=== PATIENT | female | born 1995 | race Caucasian/White ===

== ENCOUNTER 2019-08-26 12:09 | Observation (INO) ==
[2019-08-26 13:55] LABS: Basophils % 0.4 % (0.0-0.8); Eosinophils % 0.4 % (0.00-10.9); Hematocrit 42.4 VOL% (35.7-47.0); Hemoglobin 14.4 GM/DL (12.0-16.0); Immature Granulocytes % 0.4 %; Immature Granulocytes Absolute 0.01 #; Lymphocytes # 0.5 10*3/uL (1.4-4.0); Lymphocytes % 18.1 % (21.3-54.2); Mean Corpuscular Volume 94.9 FL (87-102); Mean Platelet Volume 12.2 FL (9.6-12.0); Monocytes % 10.1 % (1.7-12.7); Neutrophils % 70.6 % (38.7-73.9); Platelet Count 108 T/CUMM (130-400); Red Blood Count 4.47 MC/CUMM (3.8-5.5); Red Cell Distribution Width 11.9 % (9.3-17.3); White Blood Count 2.8 T/CUMM (4-12)
[2019-08-26 14:10] LABS: Barbiturates Screen,Urine Negative (Negative); Benzodiazepines Screen,Urine Positive (Negative); Cannabinoid Screen,Urine Negative (Negative); Opiate Screen,Urine Negative (Negative); Phencyclidine Screen,Urine Negative (Negative)
[2019-08-26 14:13] LABS: Alanine Aminotransferase 28 U/L (13-56); Albumin 3.8 G/DL (3.4-5.0); Alkaline Phosphatase 117 U/L (45-117); Aspartate Amino Transferase 27 U/L (0-37); Blood Urea Nitrogen 10 MG/DL (7-18); Calcium 8.5 MG/DL (8.5-10.1); Estimated Glom Filtration Rate 116 ML/MIN; Glucose 72 MG/DL (74-106); Osmolality,Calculated 276.4 MOS/KG (273-304); Total Protein 7.2 G/DL (6.4-8.3)
[2019-08-26] MEDS ORDERED: POTASSIUM CHLORIDE 20 MEQ TABLET PO STA (14:18)
[2019-08-26] MEDS ORDERED: SODIUM CHLORIDE 0.9% 1,000 ML IV STA (15:11)
[2019-08-26] MEDS ORDERED: ACETAMINOPHEN 325 MG TABLET PO PRN (17:00)
[2019-08-26] MEDS ORDERED: ONDANSETRON 4 MG/2 ML VIAL IV PRN (17:00)
[2019-08-26] MEDS ORDERED: traZODone 50 MG TABLET PO PRN (17:29)
[2019-08-26] MEDS ORDERED: ENOXAPARIN 30 MG/0.3 ML SYRINGE SUBCUT SCH (21:00)
[2019-08-26] MEDS: NICOTINE 14 MG/24 HR PATCH TRANSDERM SCH (21:03)
[2019-08-26] MEDS: POTASSIUM CHLORIDE 20 MEQ TABLET PO SCH (21:03)
[2019-08-26] MEDS: clonazePAM 0.5 MG TABLET PO SCH (21:03)
[2019-08-26] MEDS ORDERED: traZODone 50 MG TABLET PO ONE (21:09)
[2019-08-27 05:13] LABS: Calcium 8.1 MG/DL (8.5-10.1); Osmolality,Calculated 279.4 MOS/KG (273-304)
[2019-08-27] MEDS ORDERED: SERTRALINE 100 MG TABLET PO SCH (09:00)
[2019-08-27] MEDS ORDERED: ARIPiprazole 2 MG TABLET PO SCH (09:00)
[2019-08-27] MEDS ORDERED: ASPIRIN EC 81 MG TABLET PO SCH (09:00)
[2019-08-27] MEDS: clonazePAM 0.5 MG TABLET PO SCH (09:35)
[2019-08-27] MEDS: NICOTINE 14 MG/24 HR PATCH TRANSDERM SCH (09:36)
[2019-08-27] MEDS: POTASSIUM CHLORIDE 20 MEQ TABLET PO SCH (09:36)
[2019-08-27 12:28] VITALS: BP 100/57
== END 2019-08-27 14:29 | disposition home health service (06) ==
LOC: N.EDINP 12:09 → N.ED 12:09 → N.2W 18:03 → N.2E 20:30
PROVIDERS: ADMIT Internal Medicine; ATTEND Internal Medicine

== ENCOUNTER 2019-12-07 20:59 | Inpatient (IN) ==
[2019-12-07 22:00] LABS: Basophils % 0.5 % (0.0-0.8); Eosinophils # 0.1 10*3/uL (0.0-0.87); Eosinophils % 1.2 % (0.00-10.9); Hematocrit 30.5 VOL% (35.7-47.0); Hemoglobin 9.3 GM/DL (12.0-16.0); Immature Granulocytes % 0.5 %; Immature Granulocytes Absolute 0.03 #; Lymphocytes # 1.2 10*3/uL (1.4-4.0); Lymphocytes % 17.7 % (21.3-54.2); Mean Corpuscular HGB Conc 30.5 GM/DL (32-36); Mean Corpuscular Volume 95.9 FL (87-102); Mean Platelet Volume 11.1 FL (9.6-12.0); Monocytes % 6.7 % (1.7-12.7); Neutrophils % 73.4 % (38.7-73.9); Platelet Count 299 T/CUMM (130-400); Red Blood Count 3.18 MC/CUMM (3.8-5.5); Red Cell Distribution Width 13.8 % (9.3-17.3); White Blood Count 6.6 T/CUMM (4-12)
[2019-12-07 22:15] LABS: INR 1.1; PT Patient Result 12.2 SECS (9.6-12.2); Partial Thromboplastin Time 26.2 SECS (20.8-36.0)
[2019-12-07 22:24] LABS: Alanine Aminotransferase 15 U/L (13-56); Albumin 2.9 G/DL (3.4-5.0); Alkaline Phosphatase 248 U/L (45-117); Aspartate Amino Transferase 14 U/L (0-37); Bilirubin,Total < 0.39 MG/DL (0.2-1.0); Blood Urea Nitrogen 9 MG/DL (7-18); Calcium 8.2 MG/DL (8.5-10.1); Estimated Glom Filtration Rate 99 ML/MIN; Glucose 114 MG/DL (74-106); Osmolality,Calculated 278.4 MOS/KG (273-304); Total Protein 6.7 G/DL (6.4-8.3)
[2019-12-07] MEDS ORDERED: diphenhydrAMINE 50 MG/1 ML VIAL IV STA (23:41)
[2019-12-08] MEDS ORDERED: SODIUM CHLORIDE 0.9% 1,000 ML IV STA (00:40)
[2019-12-08 03:03] LABS: Barbiturates Screen,Urine Negative (Negative); Benzodiazepines Screen,Urine Negative (Negative); Cannabinoid Screen,Urine Negative (Negative); Opiate Screen,Urine Negative (Negative); Phencyclidine Screen,Urine Negative (Negative)
[2019-12-08 03:33] LABS: Apearance,Urine CLEAR (Clear); Bilirubin,Urine Negative (Negative); Blood, Urine Negative (Negative); Glucose,Urine (UA) Negative (Negative); Ketones,Urine Negative (Negative); Nitrite,Urine Negative (Negative); Protein,Urine Negative; RBC,Urine 2 /HPF (0-4); Squamous Epithelial Cell,Urine Occasional /HPF (0-10); Urine Color Straw (Yellow); Urine Specific Gravity > 1.060 (1.001-1.035); Urine Urobilinogen < 2.0 EU/DL (0.2-1.0); WBC,Urine <1 /HPF (0-6)
[2019-12-08] MEDS ORDERED: SODIUM CHLORIDE 0.9% 500 ML IV ONE (04:17)
[2019-12-08] MEDS ORDERED: MAGNESIUM SULF RIDER 4 GM in PREMIX 1 EACH IV PRN (04:59)
[2019-12-08] MEDS ORDERED: ALBUTEROL/IPRATROPIUM 3 ML NEB RESP TX PRN (04:59)
[2019-12-08] MEDS ORDERED: hydrALAZINE 20 MG/1 ML VIAL IV PRN (04:59)
[2019-12-08] MEDS ORDERED: MAGNESIUM SULF RIDER 2 GM in PREMIX 1 EACH IV PRN (04:59)
[2019-12-08] MEDS ORDERED: ONDANSETRON 4 MG/2 ML VIAL IV PRN (04:59)
[2019-12-08] MEDS ORDERED: ACETAMINOPHEN 325 MG TABLET PO PRN (04:59)
[2019-12-08] MEDS ORDERED: NICOTINE 21 MG/24 HR PATCH TRANSDERM PRN (04:59)
[2019-12-08] MEDS: SODIUM CHLORIDE 0.9% 1,000 ML IV SCH ×2 (05:38→13:00)
[2019-12-08] MEDS: POTASSIUM CHLORIDE RIDER 10 MEQ in PREMIX 1 EACH IV PRN ×2 (05:41→09:13)
[2019-12-08 07:14] LABS: Basophils % 0.5 % (0.0-0.8); Eosinophils % 0.9 % (0.00-10.9); Hemoglobin 7.5 GM/DL (12.0-16.0); Immature Granulocytes % 0.2 %; Immature Granulocytes Absolute 0.01 #; Lymphocytes # 0.9 10*3/uL (1.4-4.0); Lymphocytes % 20.8 % (21.3-54.2); Mean Corpuscular Volume 97.3 FL (87-102); Monocytes % 7.6 % (1.7-12.7); Platelet Count 181 T/CUMM (130-400); Red Blood Count 2.57 MC/CUMM (3.8-5.5); Red Cell Distribution Width 13.9 % (9.3-17.3); White Blood Count 4.3 T/CUMM (4-12)
[2019-12-08 07:32] LABS: Alanine Aminotransferase 13 U/L (13-56); Albumin 2.4 G/DL (3.4-5.0); Alkaline Phosphatase 194 U/L (45-117); Aspartate Amino Transferase 13 U/L (0-37); Bilirubin,Direct < 0.050 MG/DL (0.0-0.20); Bilirubin,Indirect 0.4 MG/DL (0.0-1.0); Total Protein 5.4 G/DL (6.4-8.3)
[2019-12-08] MEDS ORDERED: SODIUM CHLORIDE 0.9% 1,000 ML IV PRN (07:57)
[2019-12-08 08:19] LABS: Calcium 7.5 MG/DL (8.5-10.1); Osmolality,Calculated 279.3 MOS/KG (273-304)
[2019-12-08 08:24] LABS: Hepatitis B Core IgM Quant 0.13 Index; Hepatitis B Surface Ag Quant < 0.10 Index; Hepatitis B Surface Ag Result Negative (Negative); Hepatitis C Virus Ab Quant 0.02 Index; Hepatitis C Virus Ab Result Negative (Negative)
[2019-12-08 08:37] LABS: % Iron Saturation 14.4 % (18-50); Ferritin 22.9 ng/ml (8-252)
[2019-12-08] MEDS ORDERED: clonazePAM 0.5 MG TABLET PO PRN (17:48)
[2019-12-08] MEDS: diphenhydrAMINE CAP 25 MG CAPSULE PO PRN (18:06)
[2019-12-09] MEDS: SODIUM CHLORIDE 0.9% 1,000 ML IV SCH ×3 (05:02→13:43)
[2019-12-09 06:25] LABS: Basophils % 0.3 % (0.0-0.8); Eosinophils % 0.9 % (0.00-10.9); Hematocrit 29.1 VOL% (35.7-47.0); Hemoglobin 9.1 GM/DL (12.0-16.0); Immature Granulocytes % 0.3 %; Immature Granulocytes Absolute 0.01 #; Lymphocytes # 0.8 10*3/uL (1.4-4.0); Lymphocytes % 23.2 % (21.3-54.2); Mean Corpuscular HGB Conc 31.3 GM/DL (32-36); Mean Corpuscular Volume 92.4 FL (87-102); Mean Platelet Volume 11.3 FL (9.6-12.0); Monocytes % 8.1 % (1.7-12.7); Neutrophils % 67.2 % (38.7-73.9); Platelet Count 166 T/CUMM (130-400); Red Blood Count 3.15 MC/CUMM (3.8-5.5); Red Cell Distribution Width 15.7 % (9.3-17.3); White Blood Count 3.3 T/CUMM (4-12)
[2019-12-09 06:29] LABS: Osmolality,Calculated 272.5 MOS/KG (273-304)
[2019-12-09] MEDS: diphenhydrAMINE CAP 25 MG CAPSULE PO PRN (08:31)
[2019-12-09] MEDS ORDERED: PROMETHAZINE 25 MG/1 ML VIAL IM PRN (11:57)
[2019-12-09] MEDS ORDERED: HydrOXYzine PAMOATE 25 MG CAPSULE PO PRN (11:57)
[2019-12-09] MEDS ORDERED: FUROSEMIDE 40 MG TABLET PO PRN (11:57)
[2019-12-09] MEDS ORDERED: SERTRALINE 100 MG TABLET PO SCH (12:00)
[2019-12-09] MEDS ORDERED: ARIPiprazole 10 MG TABLET PO SCH (12:00)
[2019-12-09] MEDS ORDERED: PANTOPRAZOLE 20 MG TABLET PO SCH (12:00)
[2019-12-09] MEDS ORDERED: clonazePAM 0.5 MG TABLET PO SCH (15:00)
[2019-12-09] MEDS ORDERED: GABAPENTIN 300 MG CAPSULE PO SCH (15:00)
[2019-12-09 15:59] VITALS: BP 106/56
== END 2019-12-09 20:20 | disposition hospice, home (50) | DRG 252 ==
LOC: N.ED 20:59 → N.EDINP 12-08 00:57 → SUATTDRO 12-08 00:57 → N.3E 12-08 01:35
PROVIDERS: ADMIT Family Medicine; ATTEND Emergency Medicine

== ENCOUNTER 2020-10-02 20:43 | Observation (INO) ==
[2020-10-02 21:42] LABS: Basophils % 0.3 % (0.0-0.8); Eosinophils % 0.5 % (0.00-10.9); Hematocrit 36.6 VOL% (35.7-47.0); Hemoglobin 11.8 GM/DL (12.0-16.0); Immature Granulocytes % 0.3 %; Immature Granulocytes Absolute 0.01 #; Lymphocytes # 0.8 10*3/uL (1.4-4.0); Lymphocytes % 20.5 % (21.3-54.2); Mean Corpuscular HGB Conc 32.2 GM/DL (32-36); Mean Platelet Volume 11.6 FL (9.6-12.0); Monocytes # 0.3 10*3/uL (0.11-0.8); Monocytes % 8.2 % (1.7-12.7); Neutrophils % 70.2 % (38.7-73.9); Platelet Count 141 T/CUMM (130-400); Red Blood Count 4.02 MC/CUMM (3.8-5.5); Red Cell Distribution Width 15.1 % (9.3-17.3); White Blood Count 3.9 T/CUMM (4-12)
[2020-10-02 21:56] LABS: INR 1.1; PT Patient Result 11.8 SECS (9.8-11.9); Partial Thromboplastin Time 27.1 SECS (23.9-33.8)
[2020-10-02 22:04] LABS: Alanine Aminotransferase 25 U/L (13-56); Albumin 3.4 G/DL (3.4-5.0); Alkaline Phosphatase 187 U/L (45-117); Aspartate Amino Transferase 23 U/L (0-37); Bilirubin,Total < 0.39 MG/DL (0.2-1.0); Blood Urea Nitrogen 14 MG/DL (7-18); Calcium 8.6 MG/DL (8.5-10.1); Carbon Dioxide 25 MMOL/L (21-32); Chloride 111 MMOL/L (98-107); Estimated Glom Filtration Rate 127 ML/MIN; Glucose 97 MG/DL (74-106); Potassium 3.6 MMOL/L (3.5-5.1); Sodium 143 MMOL/L (136-145); Total Protein 6.6 G/DL (6.4-8.3)
[2020-10-02 22:44] LABS: Amorphous Crystals,Urine Moderate /HPF (Few); Bacteria,Urine Occasional /HPF (Few); Bilirubin,Urine Negative (Negative); Blood, Urine Negative (Negative); Glucose,Urine (UA) Negative (Negative); Ketones,Urine Negative (Negative); Mucus,Urine Occasional /LPF (Occasional); Nitrite,Urine Negative (Negative); Protein,Urine Negative; Squamous Epithelial Cell,Urine Occasional /HPF (0-10); Urine Appearance CLOUDY (Clear); Urine Color Yellow (Yellow); Urine Specific Gravity 1.028 (1.001-1.035); Urine Urobilinogen < 2.0 EU/DL (0.2-1.0); WBC,Urine 13 /HPF (0-6)
[2020-10-02] MEDS ORDERED: SODIUM CHLORIDE 0.9% 500 ML IV STA (22:51)
[2020-10-02 23:05] LABS: Barbiturates Screen,Urine Negative (Negative); Benzodiazepines Screen,Urine Negative (Negative); Cannabinoid Screen,Urine Negative (Negative); Opiate Screen,Urine Negative (Negative); Phencyclidine Screen,Urine Negative (Negative)
[2020-10-02] MEDS ORDERED: ACETAMINOPHEN 325 MG TABLET PO PRN (23:12)
[2020-10-02] MEDS ORDERED: GLUCAGON 1 MG VIAL IM PRN (23:12)
[2020-10-02] MEDS ORDERED: ONDANSETRON 4 MG/2 ML VIAL IV PRN (23:12)
[2020-10-02] MEDS ORDERED: DEXTROSE 50% 25 GM/50 ML VIAL IV PRN (23:12)
[2020-10-03 00:16] LABS: Band Neutrophils 1 % (0-10); Eosinophils 1 % (0-10); Lymphocytes 19 % (20-55); Platelet Estimate Adequate; Reactive Lymphocytes 2+; Total Cells Counted 100
[2020-10-03 00:17] LABS: Anisocytosis Slight; Microcytosis Slight
[2020-10-03] MEDS ORDERED: NICOTINE 2 MG BUCCAL PRN (03:19)
[2020-10-03] MEDS ORDERED: PROMETHAZINE 25 MG TABLET PO PRN (03:19)
[2020-10-03] MEDS ORDERED: GUM BUCCAL PRN (03:19)
[2020-10-03] MEDS ORDERED: HydrOXYzine PAMOATE 25 MG CAPSULE PO PRN (03:19)
[2020-10-03] MEDS ORDERED: MELATONIN 3 MG TABLET PO PRN (03:19)
[2020-10-03] MEDS ORDERED: FUROSEMIDE 40 MG TABLET PO PRN (03:19)
[2020-10-03 07:34] LABS: Basophils % 0.3 % (0.0-0.8); Eosinophils % 0.8 % (0.00-10.9); Hematocrit 31.6 VOL% (35.7-47.0); Hemoglobin 10.1 GM/DL (12.0-16.0); Immature Granulocytes % 0.3 %; Immature Granulocytes Absolute 0.01 #; Lymphocytes # 0.9 10*3/uL (1.4-4.0); Lymphocytes % 24.8 % (21.3-54.2); Mean Corpuscular Volume 91.9 FL (87-102); Monocytes # 0.4 10*3/uL (0.11-0.8); Monocytes % 10.1 % (1.7-12.7); Neutrophils % 63.7 % (38.7-73.9); Platelet Count 142 T/CUMM (130-400); Red Blood Count 3.44 MC/CUMM (3.8-5.5); Red Cell Distribution Width 15.4 % (9.3-17.3); White Blood Count 3.7 T/CUMM (4-12)
[2020-10-03 08:20] LABS: Alanine Aminotransferase 20 U/L (13-56); Albumin 2.9 G/DL (3.4-5.0); Alkaline Phosphatase 153 U/L (45-117); Aspartate Amino Transferase 15 U/L (0-37); Bilirubin,Total < 0.39 MG/DL (0.2-1.0); Blood Urea Nitrogen 10 MG/DL (7-18); Carbon Dioxide 27 MMOL/L (21-32); Chloride 112 MMOL/L (98-107); Estimated Glom Filtration Rate 147 ML/MIN; Glucose 61 MG/DL (74-106); Potassium 3.6 MMOL/L (3.5-5.1); Sodium 143 MMOL/L (136-145); Total Protein 5.8 G/DL (6.4-8.3)
[2020-10-03] MEDS: FERROUS SULFATE 325 MG TABLET PO SCH (08:48)
[2020-10-03] MEDS: GABAPENTIN 300 MG CAPSULE PO SCH ×3 (08:48→23:04)
[2020-10-03] MEDS: PANTOPRAZOLE 40 MG TABLET PO SCH (08:48)
[2020-10-03] MEDS: clonazePAM 0.5 MG TABLET PO SCH ×3 (08:48→23:04)
[2020-10-03] MEDS ORDERED: PANTOPRAZOLE 20 MG TABLET PO SCH (09:00)
[2020-10-03] MEDS ORDERED: diphenhydrAMINE 50 MG/1 ML VIAL IV ONE (11:07)
[2020-10-03 11:59] LABS: Basophils % 0.3 % (0.0-0.8); Eosinophils % 0.3 % (0.00-10.9); Hematocrit 33.8 VOL% (35.7-47.0); Hemoglobin 10.6 GM/DL (12.0-16.0); Lymphocytes # 0.9 10*3/uL (1.4-4.0); Lymphocytes % 26.4 % (21.3-54.2); Mean Corpuscular HGB Conc 31.4 GM/DL (32-36); Mean Corpuscular Volume 92.3 FL (87-102); Mean Platelet Volume 11.8 FL (9.6-12.0); Monocytes # 0.3 10*3/uL (0.11-0.8); Platelet Count 131 T/CUMM (130-400); Red Blood Count 3.66 MC/CUMM (3.8-5.5); Red Cell Distribution Width 15.3 % (9.3-17.3); White Blood Count 3.5 T/CUMM (4-12)
[2020-10-03 14:16] LABS: Platelet Estimate Adequate
[2020-10-03 19:11] LABS: Hemoglobin 10.4 GM/DL (12.0-16.0)
[2020-10-04 00:43] LABS: Hematocrit 39.3 VOL% (35.7-47.0); Hemoglobin 11.7 GM/DL (12.0-16.0)
[2020-10-04 01:00] LABS: Albumin 3.4 G/DL (3.4-5.0); Bilirubin,Total 0.4 MG/DL (0.2-1.0); Calcium 8.3 MG/DL (8.5-10.1); Osmolality,Calculated 272.7 MOS/KG (273-304); Potassium 3.7 MMOL/L (3.5-5.1); Total Protein 6.9 G/DL (6.4-8.3)
[2020-10-04 02:45] LABS: Basophils % 0.2 % (0.0-0.8); Eosinophils % 0.3 % (0.00-10.9); Hematocrit 39.7 VOL% (35.7-47.0); Hemoglobin 11.9 GM/DL (12.0-16.0); Immature Granulocytes % 0.3 %; Immature Granulocytes Absolute 0.02 #; Lymphocytes % 16.7 % (21.3-54.2); Mean Corpuscular Volume 98.3 FL (87-102); Mean Platelet Volume 11.6 FL (9.6-12.0); Monocytes # 0.5 10*3/uL (0.11-0.8); Monocytes % 8.4 % (1.7-12.7); Neutrophils % 74.1 % (38.7-73.9); Platelet Count 165 T/CUMM (130-400); Red Blood Count 4.04 MC/CUMM (3.8-5.5); Red Cell Distribution Width 15.3 % (9.3-17.3); White Blood Count 6.1 T/CUMM (4-12)
[2020-10-04] MEDS: clonazePAM 0.5 MG TABLET PO SCH (08:24)
[2020-10-04] MEDS: FERROUS SULFATE 325 MG TABLET PO SCH (08:24)
[2020-10-04] MEDS: GABAPENTIN 300 MG CAPSULE PO SCH (08:24)
[2020-10-04] MEDS: PANTOPRAZOLE 40 MG TABLET PO SCH (08:25)
[2020-10-04 09:29] LABS: HIV Antigen/Antibody Result Nonreactive (Nonreactive); Hepatitis B Surface Ag Quant 0.18 Index; Hepatitis B Surface Ag Result Negative (Negative); Hepatitis C Virus Ab Quant < 0.02 Index; Hepatitis C Virus Ab Result Negative (Negative)
[2020-10-04] MEDS ORDERED: NICOTINE 21 MG/24 HR PATCH TRANSDERM PRN (10:28)
[2020-10-04 12:37] VITALS: BP 115/64
== END 2020-10-04 14:02 | disposition home or self-care (01) ==
LOC: EDUNIT# → EDBD → N.EDINP 20:43 → N.ED 20:43 → N.3E 10-03 01:37
PROVIDERS: ADMIT Internal Medicine; ATTEND Internal Medicine

== ENCOUNTER 2020-10-18 20:55 | Inpatient (IN) ==
[2020-10-18 21:52] LABS: Basophils % 0.3 % (0.0-0.8); Eosinophils % 0.9 % (0.00-10.9); Hemoglobin 6.5 GM/DL (12.0-16.0); Immature Granulocytes % 0.3 %; Immature Granulocytes Absolute 0.01 #; Lymphocytes # 0.7 10*3/uL (1.4-4.0); Lymphocytes % 19.3 % (21.3-54.2); Mean Corpuscular HGB Conc 29.5 GM/DL (32-36); Mean Corpuscular Volume 94.8 FL (87-102); Mean Platelet Volume 12.2 FL (9.6-12.0); Monocytes % 9.4 % (1.7-12.7); Neutrophils % 69.8 % (38.7-73.9); Platelet Count 112 T/CUMM (130-400); Red Blood Count 2.32 MC/CUMM (3.8-5.5); Red Cell Distribution Width 14.7 % (9.3-17.3); White Blood Count 3.4 T/CUMM (4-12)
[2020-10-18 22:06] LABS: INR 1.1; PT Patient Result 11.9 SECS (9.8-11.9)
[2020-10-18 22:07] LABS: Alanine Aminotransferase 27 U/L (13-56); Albumin 2.7 G/DL (3.4-5.0); Alkaline Phosphatase 130 U/L (45-117); Aspartate Amino Transferase 16 U/L (0-37); Bilirubin,Total < 0.39 MG/DL (0.2-1.0); Blood Urea Nitrogen 11 MG/DL (7-18); Calcium 7.8 MG/DL (8.5-10.1); Estimated Glom Filtration Rate 116 ML/MIN; Glucose 73 MG/DL (74-106); Osmolality,Calculated 280.1 MOS/KG (273-304); Total Protein 5.7 G/DL (6.4-8.3)
[2020-10-19] MEDS ORDERED: DEXTROSE 50% 25 GM/50 ML VIAL IV PRN (00:01)
[2020-10-19] MEDS ORDERED: GLUCAGON 1 MG VIAL IM PRN (00:01)
[2020-10-19] MEDS ORDERED: ONDANSETRON 4 MG/2 ML VIAL IV PRN (00:01)
[2020-10-19] MEDS ORDERED: SODIUM CHLORIDE 0.9% 1,000 ML IV PRN ×4 (00:03→22:52)
[2020-10-19] MEDS: SODIUM CHLORIDE 0.9% 1,000 ML IV SCH ×3 (02:36→18:45)
[2020-10-19 06:10] LABS: Basophils % 0.2 % (0.0-0.8); Eosinophils % 0.5 % (0.00-10.9); Hematocrit 27.3 VOL% (35.7-47.0); Hemoglobin 8.6 GM/DL (12.0-16.0); Immature Granulocytes % 0.3 %; Immature Granulocytes Absolute 0.02 #; Lymphocytes # 0.8 10*3/uL (1.4-4.0); Lymphocytes % 13.2 % (21.3-54.2); Mean Corpuscular HGB Conc 31.5 GM/DL (32-36); Mean Corpuscular Volume 92.9 FL (87-102); Mean Platelet Volume 12.7 FL (9.6-12.0); Monocytes % 6.5 % (1.7-12.7); Neutrophils % 79.3 % (38.7-73.9); Platelet Count 103 T/CUMM (130-400); Red Blood Count 2.94 MC/CUMM (3.8-5.5); Red Cell Distribution Width 14.6 % (9.3-17.3)
[2020-10-19 06:34] LABS: Hypochromasia 1+; Microcytosis 1+; Ovalocytes Slight; Platelet Estimate Decreased
[2020-10-19 06:43] LABS: Calcium 7.6 MG/DL (8.5-10.1); Osmolality,Calculated 281.1 MOS/KG (273-304)
[2020-10-19] MEDS: GABAPENTIN 300 MG CAPSULE PO SCH ×3 (09:39→22:12)
[2020-10-19] MEDS: clonazePAM 0.5 MG TABLET PO SCH ×3 (09:39→22:12)
[2020-10-19] MEDS: PANTOPRAZOLE 40 MG TABLET PO SCH (09:39)
[2020-10-19] MEDS: FERROUS SULFATE 325 MG TABLET PO SCH (11:49)
[2020-10-19 19:30] LABS: Hematocrit 22.1 VOL% (35.7-47.0); Hemoglobin 6.9 GM/DL (12.0-16.0)
[2020-10-20 04:39] LABS: Hematocrit 25.9 VOL% (35.7-47.0); Hemoglobin 8.2 GM/DL (12.0-16.0)
[2020-10-20] MEDS: SODIUM CHLORIDE 0.9% 1,000 ML IV SCH ×3 (07:36→17:59)
[2020-10-20] MEDS ORDERED: LACTATED RINGERS 1,000 ML IV SCH ×2 (08:04→10:00)
[2020-10-20] MEDS: FERROUS SULFATE 325 MG TABLET PO SCH (08:08)
[2020-10-20] MEDS ORDERED: LIDOCAINE 2% 5 ML VIAL ONE (08:08)
[2020-10-20] MEDS: GABAPENTIN 300 MG CAPSULE PO SCH ×3 (08:08→22:21)
[2020-10-20] MEDS: clonazePAM 0.5 MG TABLET PO SCH ×3 (08:08→22:21)
[2020-10-20] MEDS ORDERED: propofoL 200 MG/20 ML VIAL IV ONE (08:08)
[2020-10-20] MEDS: PANTOPRAZOLE 40 MG TABLET PO SCH (08:09)
[2020-10-20] MEDS ORDERED: ALBUTEROL/IPRATROPIUM 3 ML NEB RESP TX ONE (09:35)
[2020-10-20] MEDS ORDERED: BISACODYL 5 MG TABLET PO ONE (15:00)
[2020-10-20] MEDS: ALBUTEROL/IPRATROPIUM 3 ML NEB RESP TX PRN (16:00)
[2020-10-20 17:13] LABS: Hematocrit 24.1 VOL% (35.7-47.0); Hemoglobin 7.6 GM/DL (12.0-16.0)
[2020-10-20] MEDS ORDERED: POLYETHYLENE GLYCOL POWDER 255 GM BOTTLE PO ONE (18:00)
[2020-10-20] MEDS ORDERED: SODIUM CHLORIDE 0.9% 1,000 ML IV PRN (20:02)
[2020-10-20 21:03] LABS: Hematocrit 25.6 VOL% (35.7-47.0)
[2020-10-21] MEDS: ALBUTEROL/IPRATROPIUM 3 ML NEB RESP TX PRN (03:43)
[2020-10-21 05:55] LABS: INR 1.1; PT Patient Result 11.4 SECS (9.8-11.9)
[2020-10-21 05:59] LABS: Basophils % 0.3 % (0.0-0.8); Eosinophils % 0.3 % (0.00-10.9); Hematocrit 25.8 VOL% (35.7-47.0); Hemoglobin 7.9 GM/DL (12.0-16.0); Lymphocytes # 0.5 10*3/uL (1.4-4.0); Lymphocytes % 16.3 % (21.3-54.2); Mean Corpuscular HGB Conc 30.6 GM/DL (32-36); Mean Corpuscular Volume 92.8 FL (87-102); Mean Platelet Volume 12.4 FL (9.6-12.0); Monocytes % 7.9 % (1.7-12.7); Neutrophils % 75.2 % (38.7-73.9); Red Blood Count 2.78 MC/CUMM (3.8-5.5); Red Cell Distribution Width 15.3 % (9.3-17.3)
[2020-10-21 06:30] LABS: Platelet Count 74 T/CUMM (130-400); White Blood Count 3.3 T/CUMM (4-12)
[2020-10-21 06:34] LABS: Eosinophils 2 % (0-10); Lymphocytes 8 % (20-55); Platelet Estimate Decreased; Segmented Neutrophils 85 % (50-85); Total Cells Counted 100
[2020-10-21 06:35] LABS: Hypochromasia 1+; Microcytosis 1+
[2020-10-21] MEDS ORDERED: LACTATED RINGERS 1,000 ML IV SCH (08:00)
[2020-10-21] MEDS ORDERED: propofoL 200 MG/20 ML VIAL IV ONE (08:50)
[2020-10-21] MEDS ORDERED: LIDOCAINE 2% 5 ML VIAL ONE (08:50)
[2020-10-21] MEDS ORDERED: ETOMIDATE 20 MG/10 ML VIAL IV ONE (09:06)
[2020-10-21] MEDS: FERROUS SULFATE 325 MG TABLET PO SCH (10:09)
[2020-10-21] MEDS: PANTOPRAZOLE 40 MG TABLET PO SCH (10:09)
[2020-10-21] MEDS: clonazePAM 0.5 MG TABLET PO SCH ×3 (10:09→20:50)
[2020-10-21] MEDS: GABAPENTIN 300 MG CAPSULE PO SCH ×3 (10:09→20:50)
[2020-10-21] MEDS: SODIUM CHLORIDE 0.9% 1,000 ML IV SCH ×3 (10:09→20:49)
[2020-10-21 16:29] LABS: Hematocrit 23.5 VOL% (35.7-47.0); Hemoglobin 7.2 GM/DL (12.0-16.0)
[2020-10-21] MEDS ORDERED: methylPREDNISolone SOD SUC 125 MG/2 ML VIAL ONE (16:53)
[2020-10-21] MEDS ORDERED: diphenhydrAMINE 50 MG/1 ML VIAL ONE (16:53)
[2020-10-21] MEDS ORDERED: FAMOTIDINE 20 MG/2 ML VIAL IV ONE (16:57)
[2020-10-21] MEDS ORDERED: diphenhydrAMINE 50 MG/1 ML VIAL IV ONE (16:57)
[2020-10-21] MEDS ORDERED: SODIUM CHLORIDE 0.9% 1,000 ML IV ONE (16:58)
[2020-10-21] MEDS ORDERED: ALBUTEROL 2.5 MG/3 ML NEB RESP TX ONE ×2 (16:58→17:14)
[2020-10-21] MEDS ORDERED: EPINEPHrine 1 MG/ML VIAL IM ONE (17:00)
[2020-10-21] MEDS ORDERED: methylPREDNISolone SOD SUC 125 MG/2 ML VIAL IV ONE (17:05)
[2020-10-21] MEDS ORDERED: LORazepam 2 MG/1 ML VIAL IV ONE (17:23)
[2020-10-21] MEDS ORDERED: diphenhydrAMINE CAP 25 MG CAPSULE PO SCH (18:00)
[2020-10-21] MEDS ORDERED: NOREPINEPHRINE 4 MG/4 ML VIAL IV ONE (18:06)
[2020-10-21] MEDS: NOREPINEPHRINE 8 MG in SODIUM CHLORIDE 0.9% 242 ML IV PRN (18:10)
[2020-10-21 18:53] LABS: Bilirubin,Urine Negative (Negative); Blood, Urine Negative (Negative); Glucose,Urine (UA) Negative (Negative); Ketones,Urine Negative (Negative); Mucus,Urine Occasional /LPF (Occasional); Nitrite,Urine Negative (Negative); Protein,Urine Negative; RBC,Urine 3 /HPF (0-4); Urine Appearance CLEAR (Clear); Urine Color Yellow (Yellow); Urine Specific Gravity > 1.060 (1.001-1.035); Urine Urobilinogen < 2.0 EU/DL (0.2-1.0); WBC,Urine 1 /HPF (0-6)
[2020-10-21] MEDS: FAMOTIDINE 20 MG/2 ML VIAL IV SCH (19:00)
[2020-10-21] MEDS: diphenhydrAMINE 50 MG/1 ML VIAL IV SCH (19:00)
[2020-10-21] MEDS ORDERED: FAMOTIDINE 20 MG TABLET PO SCH (21:00)
[2020-10-22] MEDS: diphenhydrAMINE 50 MG/1 ML VIAL IV SCH ×4 (02:18→17:08)
[2020-10-22 04:37] LABS: Hematocrit 32.4 VOL% (35.7-47.0); Hemoglobin 9.7 GM/DL (12.0-16.0); Immature Granulocytes % 0.8 %; Immature Granulocytes Absolute 0.05 #; Lymphocytes # 0.3 10*3/uL (1.4-4.0); Lymphocytes % 5.6 % (21.3-54.2); Mean Corpuscular HGB Conc 29.9 GM/DL (32-36); Mean Corpuscular Volume 92.8 FL (87-102); Mean Platelet Volume 12.5 FL (9.6-12.0); Monocytes % 1.2 % (1.7-12.7); Neutrophils % 92.4 % (38.7-73.9); Platelet Count 101 T/CUMM (130-400); Red Blood Count 3.49 MC/CUMM (3.8-5.5); Red Cell Distribution Width 15.7 % (9.3-17.3)
[2020-10-22] MEDS: SODIUM CHLORIDE 0.9% 1,000 ML IV SCH ×3 (04:50→19:10)
[2020-10-22] MEDS: FAMOTIDINE 20 MG/2 ML VIAL IV SCH ×2 (04:50→16:32)
[2020-10-22 04:56] LABS: Hypochromasia 1+; Microcytosis 1+
[2020-10-22 04:57] LABS: Ovalocytes Slight; Platelet Estimate Decreased
[2020-10-22] MEDS ORDERED: predniSONE 20 MG TABLET PO SCH (09:00)
[2020-10-22] MEDS: GABAPENTIN 300 MG CAPSULE PO SCH ×3 (09:19→20:46)
[2020-10-22] MEDS: clonazePAM 0.5 MG TABLET PO SCH ×3 (09:19→20:45)
[2020-10-22] MEDS: FERROUS SULFATE 325 MG TABLET PO SCH (09:19)
[2020-10-22] MEDS: PANTOPRAZOLE 40 MG TABLET PO SCH (09:20)
[2020-10-22] MEDS: NOREPINEPHRINE 8 MG in SODIUM CHLORIDE 0.9% 242 ML IV PRN (20:30)
[2020-10-22] MEDS: ALBUTEROL/IPRATROPIUM 3 ML NEB RESP TX PRN (22:20)
[2020-10-23] MEDS: diphenhydrAMINE 50 MG/1 ML VIAL IV SCH ×2 (00:10→06:20)
[2020-10-23] MEDS ORDERED: FUROSEMIDE 40 MG/4 ML VIAL IV ONE ×2 (02:29→20:28)
[2020-10-23] MEDS: SODIUM CHLORIDE 0.9% 1,000 ML IV SCH ×4 (02:34→20:06)
[2020-10-23 04:36] LABS: Alanine Aminotransferase 19 U/L (13-56); Albumin 2.7 G/DL (3.4-5.0); Alkaline Phosphatase 87 U/L (45-117); Aspartate Amino Transferase 34 U/L (0-37); Bilirubin,Total < 0.39 MG/DL (0.2-1.0); Blood Urea Nitrogen 7 MG/DL (7-18); Calcium 7.5 MG/DL (8.5-10.1); Estimated Glom Filtration Rate 113 ML/MIN; Glucose 116 MG/DL (74-106); Osmolality,Calculated 284.8 MOS/KG (273-304); Total Protein 5.4 G/DL (6.4-8.3)
[2020-10-23 04:44] LABS: Basophils % 0.2 % (0.0-0.8); Eosinophils % 0.2 % (0.00-10.9); Hematocrit 31.8 VOL% (35.7-47.0); Immature Granulocytes % 0.5 %; Immature Granulocytes Absolute 0.02 #; Mean Corpuscular Volume 101.9 FL (87-102); Mean Platelet Volume 11.9 FL (9.6-12.0); Monocytes % 8.5 % (1.7-12.7); NRBC # 0.02 10*3/uL; Neutrophils % 67.6 % (38.7-73.9); Platelet Count 70 T/CUMM (130-400); Red Blood Count 3.12 MC/CUMM (3.8-5.5); White Blood Count 4.1 T/CUMM (4-12)
[2020-10-23 04:45] LABS: Hemoglobin 8.9 GM/DL (12.0-16.0)
[2020-10-23] MEDS: FAMOTIDINE 20 MG/2 ML VIAL IV SCH ×2 (06:24→18:05)
[2020-10-23] MEDS: methylPREDNISolone SOD SUC 40 MG/1 ML VIAL IV SCH (09:33)
[2020-10-23] MEDS: GABAPENTIN 300 MG CAPSULE PO SCH ×3 (09:33→20:06)
[2020-10-23] MEDS: clonazePAM 0.5 MG TABLET PO SCH ×3 (09:33→20:06)
[2020-10-23] MEDS: FERROUS SULFATE 325 MG TABLET PO SCH (09:33)
[2020-10-23] MEDS: PANTOPRAZOLE 40 MG TABLET PO SCH (09:33)
[2020-10-23] MEDS ORDERED: diphenhydrAMINE 50 MG/1 ML VIAL IV PRN (10:27)
[2020-10-23] MEDS: ALBUTEROL/IPRATROPIUM 3 ML NEB RESP TX PRN (16:17)
[2020-10-23 18:34] LABS: ABG Base Excess 5.9 MMOL/L (-2.5-2.5); ABG HCO3 29.7 MMOL/L (20-26); ABG Oxygen Saturation 95.9 % (95-100); ABG PCO2 63.1 MM HG (35-48); ABG PH 7.327 (7.35-7.45); ABG PO2 79.2 MM HG (80-95); ABG TCO2 31.3 MMOL/L (23-27)
[2020-10-24 04:26] LABS: Hematocrit 26.5 VOL% (35.7-47.0); Hemoglobin 7.5 GM/DL (12.0-16.0); Immature Granulocytes % 0.4 %; Immature Granulocytes Absolute 0.01 #; Lymphocytes # 0.6 10*3/uL (1.4-4.0); Lymphocytes % 23.9 % (21.3-54.2); Mean Corpuscular HGB Conc 28.3 GM/DL (32-36); Mean Corpuscular Volume 98.9 FL (87-102); Mean Platelet Volume 12.3 FL (9.6-12.0); Monocytes % 7.7 % (1.7-12.7); Red Blood Count 2.68 MC/CUMM (3.8-5.5); Red Cell Distribution Width 16.5 % (9.3-17.3)
[2020-10-24 04:31] LABS: Platelet Count 72 T/CUMM (130-400); White Blood Count 2.3 T/CUMM (4-12)
[2020-10-24 04:51] LABS: Calcium 7.6 MG/DL (8.5-10.1); Osmolality,Calculated 285.7 MOS/KG (273-304)
[2020-10-24 05:01] LABS: Anisocytosis 1+; Hypochromasia 1+
[2020-10-24 05:02] LABS: Platelet Estimate Decreased; Polychromasia Slight
[2020-10-24] MEDS ORDERED: FUROSEMIDE 40 MG/4 ML VIAL IV ONE (05:41)
[2020-10-24] MEDS: FAMOTIDINE 20 MG/2 ML VIAL IV SCH ×2 (05:58→17:14)
[2020-10-24] MEDS: SODIUM CHLORIDE 0.9% 1,000 ML IV SCH ×2 (06:03→16:01)
[2020-10-24] MEDS: methylPREDNISolone SOD SUC 40 MG/1 ML VIAL IV SCH (08:41)
[2020-10-24] MEDS: PANTOPRAZOLE 40 MG TABLET PO SCH (08:42)
[2020-10-24] MEDS: FERROUS SULFATE 325 MG TABLET PO SCH (08:42)
[2020-10-24] MEDS: GABAPENTIN 300 MG CAPSULE PO SCH ×2 (08:42→15:53)
[2020-10-24] MEDS: clonazePAM 0.5 MG TABLET PO SCH ×2 (08:42→15:53)
[2020-10-25] MEDS: clonazePAM 0.5 MG TABLET PO SCH ×4 (00:15→21:51)
[2020-10-25] MEDS: GABAPENTIN 300 MG CAPSULE PO SCH ×4 (00:16→21:51)
[2020-10-25 01:39] LABS: Hematocrit 25.6 VOL% (35.7-47.0); Hemoglobin 7.6 GM/DL (12.0-16.0)
[2020-10-25] MEDS: FAMOTIDINE 20 MG/2 ML VIAL IV SCH ×2 (05:34→19:15)
[2020-10-25] MEDS ORDERED: SODIUM CHLORIDE 0.9% 1,000 ML IV PRN (08:44)
[2020-10-25 09:04] LABS: Basophils % 0.4 % (0.0-0.8); Eosinophils % 0.4 % (0.00-10.9); Hematocrit 26.3 VOL% (35.7-47.0); Hemoglobin 7.9 GM/DL (12.0-16.0); Immature Granulocytes % 0.4 %; Immature Granulocytes Absolute 0.01 #; Lymphocytes # 0.6 10*3/uL (1.4-4.0); Lymphocytes % 23.7 % (21.3-54.2); Mean Platelet Volume 12.3 FL (9.6-12.0); Monocytes % 8.2 % (1.7-12.7); NRBC # 0.02 10*3/uL; Neutrophils % 66.9 % (38.7-73.9); Platelet Count 63 T/CUMM (130-400); Red Blood Count 2.74 MC/CUMM (3.8-5.5); Red Cell Distribution Width 16.2 % (9.3-17.3); White Blood Count 2.5 T/CUMM (4-12)
[2020-10-25 09:16] LABS: Hypochromasia 1+
[2020-10-25 09:17] LABS: Anisocytosis 1+; Microcytosis 1+; Platelet Estimate Decreased
[2020-10-25] MEDS: methylPREDNISolone SOD SUC 40 MG/1 ML VIAL IV SCH (09:58)
[2020-10-25] MEDS: FERROUS SULFATE 325 MG TABLET PO SCH (09:58)
[2020-10-25] MEDS: PANTOPRAZOLE 40 MG TABLET PO SCH (09:58)
[2020-10-25 15:52] LABS: Hemoglobin 9.4 GM/DL (12.0-16.0)
[2020-10-25] MEDS: SODIUM CHLORIDE 0.9% 1,000 ML IV SCH ×2 (19:15→19:16)
[2020-10-26] MEDS: FAMOTIDINE 20 MG/2 ML VIAL IV SCH (05:28)
[2020-10-26 06:24] LABS: Eosinophils % 0.4 % (0.00-10.9); Hematocrit 29.4 VOL% (35.7-47.0); Hemoglobin 8.6 GM/DL (12.0-16.0); Immature Granulocytes % 0.4 %; Immature Granulocytes Absolute 0.01 #; Lymphocytes # 0.5 10*3/uL (1.4-4.0); Lymphocytes % 19.8 % (21.3-54.2); Mean Corpuscular HGB Conc 29.3 GM/DL (32-36); Mean Corpuscular Volume 97.7 FL (87-102); Mean Platelet Volume 12.8 FL (9.6-12.0); Monocytes % 7.1 % (1.7-12.7); Neutrophils % 72.3 % (38.7-73.9); Red Blood Count 3.01 MC/CUMM (3.8-5.5); Red Cell Distribution Width 16.3 % (9.3-17.3); White Blood Count 2.7 T/CUMM (4-12)
[2020-10-26 06:25] LABS: Platelet Count 66 T/CUMM (130-400)
[2020-10-26 06:46] LABS: Hypochromasia 1+; Microcytosis 1+; Platelet Estimate Decreased
[2020-10-26] MEDS: PANTOPRAZOLE 40 MG TABLET PO SCH (09:33)
[2020-10-26] MEDS: methylPREDNISolone SOD SUC 40 MG/1 ML VIAL IV SCH (09:34)
[2020-10-26] MEDS: clonazePAM 0.5 MG TABLET PO SCH (09:34)
[2020-10-26] MEDS: FERROUS SULFATE 325 MG TABLET PO SCH (09:34)
[2020-10-26 12:12] VITALS: BP 110/61
== END 2020-10-26 14:45 | disposition home or self-care (01) | DRG 252 ==
LOC: EDBD → EDUNIT# → N.ED 20:55 → N.EDINP 10-19 00:01 → SUATTDRO 10-19 00:01 → N.5E 10-19 14:29 → N.ICU 10-21 18:22 → N.3E 10-24 19:30
PROVIDERS: ADMIT Internal Medicine; ATTEND Emergency Medicine